=== PATIENT | female | born 1950 | race Caucasian/White ===

== ENCOUNTER 2022-11-07 14:39 | Outpatient (CLI) | payer MEDICARE, BC | END 2022-11-07 14:40 | disposition home or self-care (01) | LOC: CSHMAMMO 14:39 | PROVIDERS: ATTEND Obstetrics & Gynecology | DX: Z12.31 Encounter for screening mammogram for malignant neoplasm of breast (principal); R92.1 Mammographic calcification found on diagnostic imaging of breast; M85.852 Other specified disorders of bone density and structure, left thigh; M85.851 Other specified disorders of bone density and structure, right thigh | CPT/HCPCS: 77063; 77067; 77080 ==

== ENCOUNTER 2024-04-09 09:57 | Outpatient (CLI) | payer MEDICARE | END 2024-04-09 09:58 | disposition home or self-care (01) | LOC: CSHMAMMO 09:57 | PROVIDERS: ATTEND Physician Assistant | DX: Z12.31 Encounter for screening mammogram for malignant neoplasm of breast (principal) | CPT/HCPCS: 77063; 77067 ==

== ENCOUNTER 2024-06-17 10:08 | Outpatient (CLI) | payer MEDICARE ==
[2024-06-17] MEDS ORDERED: Magnevist 469MG/ML 20 ML VIAL ONE (11:53)
== END 2024-06-17 10:09 | disposition home or self-care (01) ==
LOC: CSHMRI 10:08
PROVIDERS: ATTEND Physician Assistant Medical
DX: R10.11 Right upper quadrant pain (principal); Z80.0 Family history of malignant neoplasm of digestive organs; R74.8 Abnormal levels of other serum enzymes; R10.13 Epigastric pain; Z90.49 Acquired absence of other specified parts of digestive tract
CPT/HCPCS: 74183; 76377; 82565; A9579